=== PATIENT | female | born 1955 | race Caucasian/White ===

== ENCOUNTER 2025-03-07 01:32 | Day surgery (SDC) | payer MEDICARE, SELFPAY ==
--- NOTE | 2025-02-24 11:02 | PC.NURSE ---
[facility] has started construction of its new state of the art ER which will open Spring 2026. With this, we anticipate parking may be a challenge for some our surgical patients and families. Parking spaces are limited but are available for all Surgical, obstetrics, and ER patients sharing this lot. If you arrive and find you are having a hard time finding a parking space, please note that we understand the challenges, please drive around the hospital and park near Hospital Entrance 1. When you enter this entrance, you can ask a volunteer to direct or take you back to the surgical waiting area to check in. We appreciate everyone?s understanding of these expected challenges while we build for your future. Report to the Outpatient Waiting Room, entrance under the green pavilion located off [address], at time __6 AM on date __03/07/25 . Planned Procedure Time: _7:30 AM .? Time changes happen often and if your time is changed the preop area will call you the afternoon before. - You and your visitor will be asked to self-screen and do not enter if you have any COVID symptoms. Please call surgeon if you need to reschedule. - A mask is optional within the hospital at this time. Patients may have clear liquids (water, carbonated beverages, clear teas, apple juice) until 3 hours prior to surgery(4:30 AM) with a maximum of 20 ounces. - No food from midnight until time of surgery and no smoking, or chewing tobacco (or any form of nicotine). No chewing gum, candy or mints. - Take only the following medications with a SIP of water on the morning of surgery: NONE DO NOT STOP ANY OF YOUR OTHER PRESCRIPTION MEDICATIONS PRIOR TO SURGERY EXCEPT THE FOLLOWING Hold all vitamins and supplements for 3 days per anesthesiologist.LAST DOSE 03/03/25 Medications to discontinue per physician ____HOLD ASPIRIN 7 DAYS PRE OP PER DR VIDALES Date to take last dose___02/27/25 Please no make-up, nail tajik, hairspray, perfume, deodorant, or body powder the day of surgery.? No jewelry (including any body piercings) or valuables the day of surgery, leave them at home.? Please take a shower or bath the night before, or the morning of, surgery with an antibacterial soap.? Wear comfortable, loose fitting clothing.? Children are encouraged to wear pajamas. - Jewelry must be removed prior to entering the operating room.? Rings and piercings that are not removed may be cut off. - The hospital will not accept responsibility for valuables.? - Please leave all valuables, including medications, at home the day of surgery. If you are going home after surgery, a licensed solid waste truck driver must drive you home.? - NO public transportation without another adult if you receive anesthesia. - We recommend that an adult stay with you for 24 hours following discharge. - We also recommend that you do not drive, make important decision, drink alcoholic beverages, or take any drugs that were not prescribed by your health care provider for at least 24 hours after your discharge time. For Pediatric surgeries, we recommend two adults accompany the child home. Follow any additional instructions given to you from your surgeon. Telephone instructions given to __PATIENT and asked if any additional questions and then verbalized understanding. Patient advised to call surgeon office or pre surgery nurse liaison [phone] if any additional questions.
[2025-02-24 11:14] VITALS: BMI 21.9
--- NOTE | 2025-03-03 07:29 | PM.IMHP ---
H&P: HPI History of Present Illness Date/Time: 03/03/25 07:29 Chief Complaint: surgery Narrative: Jacki Thakkar is a 68-year-old female who presents for a follow-up visit regarding her pelvic floor condition. She reports that she has been attending physical therapy for her pelvic floor, which has been helpful. However, she still experiences intermittent prolapse that comes and goes. She has been advised to drink more water, especially before and after consuming soda, and to try delaying the urgency by counting backwards. She has been performing the exercises given to her by the physical therapist daily, which has improved her condition, although she still experiences Symptoms of prolapse. Jacki mentions that she is managing her prolapse with exercises but is unsure if further intervention is needed. She is active, enjoys yard work, lifting, and golfing, and notices the prolapse more during these activities. She takes fiber tablets to manage constipation, which can exacerbate her symptoms. She expresses interest in addressing the prolapse surgically, as it significantly impacts her daily activities. ??she does note urinary urgency. ??she has rare stress urinary incontinence Review of Systems Review of Systems: All systems reviewed & are unremarkable except as noted in HPI and below PMFSH Social History Social History Smoking status: Never smoker Alcohol intake: current Drinks per week: 6 Alcohol use details: BEER Living arrangements: with family Spiritual care concerns: No Meds Home Medications and Allergies Home Medications ?Medication ?Instructions ?Recorded ?Confirmed ?Type aspirin 81 mg capsule 81 mg PO DAILY 02/24/25 02/24/25 History calcium 500 mg (as 1 tablet PO DAILY 02/24/25 02/24/25 History carbonate)-vitamin D3 3.125 mcg (125 unit) tablet calcium polycarbophil 625 mg 1,250 mg PO DAILY 02/24/25 02/24/25 History tablet (Fiber-Tabs) multivitamin (Multiple Vitamins 1 tablet PO DAILY 02/24/25 02/24/25 History tablet) omega 4-xhd-kgl-fish oil 1,000 mg 2 cap PO DAILY 02/24/25 02/24/25 History (120 mg-180 mg) capsule (Fish Oil) Allergies Allergy/AdvReac Type Severity Reaction Status Date / Time No Known Allergies Allergy Verified 02/24/25 10:59 Exam Narrative: - Thin, atrophic vaginal tissues - Minimal urethral mobility - Cystocele to the introitus - Good apical support - No significant rectocele Assessment and Plan Assessment and plan (1) Cystocele, midline: Code(s): N81.11 - Cystocele, midline Status: Acute (2) MARGARITO (stress urinary incontinence, female): Code(s): N39.3 - Stress incontinence (female) (male) Status: Acute Plan - Pelvic organ prolapse, stage 2 cystocele -Rare stress incontinence PLAN: - The treatment options for pelvic organ prolapse have been reviewed, which include observation, pelvic floor muscle exercises, physical therapy, pessary use, and surgical intervention, each with their specific risks and benefits. - The patient has opted for surgical repair via a vaginal approach. Specifically, we discussed a [place] tissue plication repair, along with any necessary vaginal repairs deemed essential during the procedure. - She was informed of the risks involved, including bleeding, infection, recurrence of prolapse, damage to the bowel or urinary tract, formation of fistulas, nerve or vascular injury, onset of urinary urgency, urinary retention, postoperative stress urinary incontinence, and dyspareunia. She also received written materials that explain the causes and treatments of pelvic organ prolapse. - After a comprehensive discussion of her options, she has given her consent to proceed with the surgery. - will get a urodynamics. ?For her stress urinary incontinence we will plan on a concomitant sling procedure. ??discussed sling procedure as well. ??also discuss risks of ?mesh exposure and obstructive voiding
[2025-03-07] VITALS (9 sets, daily range): BP systolic 107–148; BP diastolic 59–97; PULSE 54–79; RESP 11–18; TEMP 36.3–36.8; O2SAT 98–100
--- OUTSIDE RECORDS SUMMARY | 2025-03-07 01:43 | XMS_ITS | Encounter Summary ---
Author Organization [facility] Address [address] [place] [id number] Care Team Providers Care Surface Miner Name Role Phone WilfredoMauricio marion BREANA Primary Care Provider [phone] Jennifer Sosa NP Primary Care Provider + Massiel Bass MD Unavailable [phone] Encounter Details Date Type Department Care Team (Late st Contact Info) Description 01/21/2020 Prep for Procedure [facility] [address] [facility] [place] [address] Ramsey Frausto MD Social History Tobacco Use Types Packs/Day Years Used Date Smoking Tobacco: Never Smokeless Tobacco: Never Alcohol Use Standard Drinks/Week Comments Yes 11.7 (1 standard drink = 0.6 oz pure alcohol) Comments No Sex and Gender Information Value Date Recorded Sex Assigned at Female 01/29/2025 12:20 PM CDT Legal Sex Female 4:22 PM CDT Gender Identity Female 01/29/2025 12:20 PM CDT Sexual Orientation Not on file COVID-19 Exposure Response Date Recorded In the last month, have you been in contact with someone who was confirmed or suspected to have Coronavirus / COVID-19? No / Unsure 01/24/2020 11:13 AM CDT documented as of this encounter Plan of Treatment Upcoming Encounters Date Type Department Care Team (Latest Contact Info) Description 03/26/2025 1:00 PM WELL TREATMENT OFFSIDER Appointment [facility] [address] [facility] [place] [address] Jennifer Sosa NP [address] [facility] [address] [place] [address] 07/11/2025 7:30 AM CDT Hospital Encounter [facility] [place], [place] [id number] Bryce Blakely, DO [address] [address] 07/11/2025 7:30 AM CDT - 07/11/2025 8:00 AM CDT Surgery [facility] [address] Bryce Blakely, DO [facility] [address] [address] COLONOSCOPY w/Dr. Marcano Scheduled Procedures Name Priority Associated Diagnoses Date/Ti me COLONOSCOPY Tortuous colon 07/11/2025 7:30 AM CDT documented as of this encounter Results * PRE-SURGICAL/PRE-PROCEDURE CORONAVIRUS (COVID 19) (01/24/2020 11:13 AM CDT) CORONAVIRUS SARS COV 2 PCR (RESP) NOT DETECTED NOT DETECTED 01/25/2020 4:45 PM CDT [facility] Comment: A Not Detected (negative) test result for this test means that SARS- CoV-2 RNA was not present in the specimen above the limit of detection. A negative result does not rule out the possibility of COVID-19 and should not be used as the sole basis for treatment or patient management decisions. If COVID-19 is still suspected, based on exposure history together with other clinical findings, re-testing should be considered in consultation with public health authorities. Laboratory test results should always be considered in the context of clinical observations and epidemiological data in making a final diagnosis and patient management decisions. Please review the Fact Sheets and FDA authorized labeling available for health care providers and patients using the following websites: https://www.[employer].SnapLogic/home/Covid-19/HCP/NAAT/fact-sheet2 https://www.[employer].SnapLogic/home/Covid-19/Patients/NAAT/ fact-sheet2 This test has been authorized by the FDA under an Emergency Use Authorization (EUA) for use by authorized laboratories. Due to the current public health emergency, [facility] is receiving a high volume of samples from a wide variety of swabs and media for COVID-19 testing. In order to serve patients during this public health crisis, samples from appropriate clinical sources are being tested. Negative test results derived from specimens received in non-commercially manufactured viral collection and transport media, or in media and sample collection kits not yet authorized by FDA for COVID-19 testing should be cautiously evaluated and the patient potentially subjected to extra precautions such as additional clinical monitoring, including collection of an additional specimen. Methodology: Nucleic Acid Amplification Test (NAAT) includes PCR or TMA Additional information about COVID-19 can be found at the [employer] website: www.[employer]SnapLogic/Covid19. Test performed at [facility] [id number] [place] [address] Director: DIMPLE ABREU DO,MPH FIRST TEST YES 01/24/2020 11:13 AM T [facility] EMPLOYED IN HEALTHCARE NO 01/24/2020 11:13 AM T [facility] SYMPTOMATIC DEFINED BY CDC NO 01/24/2020 11:13 AM T [facility] DATE OF SYMPTOM ONSET UNKNOWN 01/24/2020 11:28 AM T [facility] HOSPITALIZATION STATUS NO 01/24/2020 11:13 AM T [facility] PATIENT IN ICU NO 01/24/2020 11:13 AM T [facility] RESIDENT OF [facility] NO 01/24/2020 11:13 AM T [facility] NOT 01/24/2020 11:28 AM T [facility] PATIENT'S RACE WHITE OR 01/24/2020 11:13 AM CDT [facility] ETHNICITY NONHISPANIC 01/24/2020 11:13 AM CDT [facility] SOURCE (QST) NASOPHARYNGEAL SWAB 01/24/2020 11:13 AM CDT [facility] NASOPHARYNGEAL SWAB / Unknown 01/24/2020 11:13 AM CDT us Ramsey Frausto MD MICROBIOLOGY - GENERAL ERON HICKEY Final Result [facility] [address] [place] [address], [facility] [address] [place] [address], documented in this encounter Visit Diagnoses Diagnosis Pre-op testing- Primary Preoperative examination, unspecified documented in this encounter Additional Health Concerns Infection Onset Date Last Indicated Resolved Time COVID-19 Rule Out 01/24/2020 01/24/2020 01/25/2020 4:45 PM CDT documented as of this encounter Care Teams Surface Miner Relationship Specialty Start Date End Date Mauricio Villalobos FNP [address] [facility] [address] [place] [address] PCP - General Nurse Practitioner Family 01/04/1911/24 Jennifer Sosa NP [address] [facility] [address] [place] [address] PCP - General Nurse Practitioner Family 11/25/20 Massiel Bass MD [facility] [place] [address] DERMATOLOGY 12/25/20 documented as of this encounter
--- OUTSIDE RECORDS SUMMARY | 2025-03-07 01:44 | XMS_ITS | Encounter Summary ---
Author Organization [facility] Address [address] [place] [address] Care Team Providers Care Set Up Worker Name Role Phone Unavailable Primary Care Provider Unavailabl e Encounter Details Date Type Department Care Team (Late st Contact Info) Description 04/13/2018 Lab Requisition [facility] [address] [facility] [place] [id number] Lilo Juarez DO [address] [facility] [address] [place] [address] Social History Tobacco Use Types Packs/Day Years Used Date Smoking Tobacco: Never Assessed Comments Unknown Sex and Gender Information Value Date Recorded Sex Assigned at Not on file Legal Sex Female 5:56 PM REGULATOR INSPECTOR Gender Identity Not on file Sexual Orientation Not on file documented as of this encounter Plan of Treatment Not on file documented as of this encounter Procedures Procedure Name Priority Date/Time Associated Diagnosis Comments DERMPATH SLIDE CONSULT Routine 04/13/2018 12:00 AM REGULATOR INSPECTOR documented in this encounter Results * DERMPATH SLIDE CONSULT (04/13/2018 12:00 AM REGULATOR INSPECTOR) Case Report Dermatopathology Report Case: [id number] Authorizing Provider: Lilo Juarez DO Collected: 04/13/2018 12:00 AM Pathologist: Michelle Yin MD Received: 04/13/2018 02:48 PM Specimen: Slide(s), Left index 8 1:44 PM REGULATOR INSPECTOR DERMATOPATHOLOGY LABORATORY Final Diagnosis Specimen A. Slide(s), Left index: DERMAL SPINDLE CELL NEOPLASM, SUPERFICIAL PORTIONS OF (D23.9) (see microscopic description and comment) 8 1:44 PM REGULATOR INSPECTOR DERMATOPATHOLOGY LABORATORY at 1344 REGULATOR INSPECTOR Clinical History Materials received from: [facility] [address] [place] [address] Received from [facility] are 12 slide(s) labeled [id number], Deeper x2, García Keratin, P63, S100, CD34, Factor XIII, Actin, Desmin, CD10, and CD68. Dermal spindle cell proliferation. All slides returned. Any additional sections, special stains or immunohistochemical stains performed by our laboratory will be kept here on file. 1:44 PM [facility] Microscopic Description Specimen A. Slide(s), Left index: The lesion is very superficially sampled. Within the dermis, there are spindled cells in haphazard array among coarse collagen bundles. The spindled cells are positive for CD10, focally positive for Factor 13A, and weakly positive for smooth muscle actin but they are negative for pancytokeratin, p63, S-100, CD34, desmin and CD68. Colloidal iron is equivocal for increased mucin. Mib-1 reveals a low proliferative index within the tumor. COMMENT: The low proliferative index and lack of significant cytologic atypia, pleomorphism and mitotic figures favors a benign diagnosis such as superficial portions of a dermatofibroma, superficial angiomyxoma or multinucleate cell angiohistiocytoma; however, the superficial nature of the biopsy specimen precludes definitive diagnosis and a deeper biopsy should be considered. This case was shared with Dr. Frannie Otto who agrees. 1:44 PM [facility]ORATORY Disclaimer An external and internal positive and negative controls are appropriate for the histochemical, immunohistochemical and immunofluorescence stain(s) in this case (if any), except where stated explicitly. The performance characteristics of the stain(s) cited in this report were developed and its performance characteristic determined by the Dermatopathology Laboratory at [facility]. These tests need not be, and therefore are not, approved by the [place] Food and Drug Administration. The tests are used for clinical purposes. Billing Codes Specimen Charges Stain Charges 84291 1 17515 20074 1 1 8 1:44 PM REGULATOR INSPECTOR DERMATOPATHOLOGY LABORATORY Embedded Images 1:44 PM REGULATOR INSPECTOR DERMATOPATHOLOGY LABORATORY Pathology/Cytolog y SLIDE / Unknown 04/13/2018 04/13/2018 2:48 PM REGULATOR INSPECTOR us Lilo Juarez DO LAB - PATHOLOGY/CYTOLOGY ORDERABLES Final Result DERMATOPATHOLOGY LABORATORY [facility] - Department of Dermatology [address] [facility]th [facility] Lab [address] [phone] documented in this encounter Visit Diagnoses Not on filedocumented in this encounter
--- OUTSIDE RECORDS SUMMARY | 2025-03-07 01:44 | XMS_ITS | Clinical Summary ---
Author Organization [facility] Address [address] [place] [address] Care Team Providers Care Hr Leader Name Role Phone Unavailable Primary Care Provider Unavailabl e Source Comments [facility] [employer],non-owned Affiliates and Associated Physician Practices is amultiple site organization consisting of ambulatory clinics and hospital sitesin [place], [place] and [place]. This disclosure is being madepursuant to the Care Everywhere program and may not contain all information available regarding this patient. 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 Gender Identity Not on file Sexual Orientation Not on file Plan of Treatment Health Maintenance Due Date Last Done Comments BONE DENSITY TESTING 1955 COLOGUARD (AGES 45-75) - COL ON CA SCREENING 1956 COLON MONITORING 1956 COLONOSCOPY - COLON CA SCREENING 1956 CT COLONOGRAPHY - COLON CA SCREENING 1956 Colorectal Cancer Screening 1956 FIT - COLON CA SCREENING 1956 FLEX SIG - COLON CA SCREENING 1956 LIPID TESTING 1956 MAMMOGRAM 1956 HEPATITIS C SCREENING 10/04/1974 DTAP/TDAP/TD VACCINES (1 - Tdap) 10/09/1975 PNEUMOCOCCAL VACCINE 50+ (1 of 1 - PCV) 2006 ZOSTER VACCINE (1 of 2) 2006 DEPRESSION SCREENING 04/24/2024 COVID-19 VACCINE (1 - 2024-2 6 season) 2024 INFLUENZA VACCINE (#1) 2024 Respiratory Syncytial Virus (RSV) Vaccine Pt: or over 60 yrs (1 - 1-dose 75+ series) 10/09/2031 HEPATITIS B VACCINE Aged Out No longe r eligible based on patient's age to complete this topic HIB VACCINE Aged Out No longer eligi ble based on patient's age to complete this topic HPV VACCINE Aged Out No longer eligi ble based on patient's age to complete this topic MENINGOCOCCAL (Group B) VACC INE SHARED DECISION-MAKING Aged Out No longer eligibl e based on patient's age to complete this topic MENINGOCOCCAL GROUPS A/C/Y/W VACCINE Aged Out No longer eligible b ased on patient's age to complete this topic Insurance Member Subscriber Plan / Payer (Ef fective 2017-Present) Name:Jacki Thakkar Relation to Subscriber:Self Name:JACKI THAKKAR Payer ID:[id number] (NAIC) Type:[facility] Address: [facility] [id number] [place] [id number]
--- OUTSIDE RECORDS SUMMARY | 2025-03-07 01:44 | XMS_ITS | Encounter Summary ---
Author Organization [facility] Address [address] [place] [address] Care Team Providers Care Manufacturing Cost Estimator Name Role Phone Unavailable Primary Care Provider Unavailabl e Encounter Details Date Type Department Care Team (Late st Contact Info) Description 04/09/2018 Lab Requisition [facility] Care DermPath Lab [address] [facility] [place] [id number] Massiel Bass MD [address] [facility] 3 [place] [address] Social History Tobacco Use Types Packs/Day Years Used Date Smoking Tobacco: Never Assessed Comments Unknown Sex and Gender Information Value Date Recorded Sex Assigned at Not on file Legal Sex Female 5:56 PM COLD ROLL OPERATOR Gender Identity Not on file Sexual Orientation Not on file documented as of this encounter Plan of Treatment Not on file documented as of this encounter Procedures Procedure Name Priority Date/Time Associated Diagnosis Comments DERMATOPATH TECHNICAL REPORT Routine 04/05/2018 12:00 AM COLD ROLL OPERATOR documented in this encounter Results * DERMATOPATH TECHNICAL REPORT (04/05/2018 12:00 AM COLD ROLL OPERATOR) Case Report Dermatopathology Report Case: [id number] Authorizing Provider: Massiel Bass MD Collected: 04/05/2018 12:00 AM Pathologist: Manolo Schneider MD Received: 04/09/2018 07:10 AM Specimen: Skin, left index 8 3:02 PM COLD ROLL OPERATOR DERMATOPATHOLOGY LABORATORY Addendum 2 At the request of the diagnosing physician, the technical component for CD68 was performed by [facility] Dermatopathology Laboratory. 8 3:02 PM COLD ROLL OPERATOR DERMATOPATHOLOGY LABORATORY Addendum electronically signed by Manolo Schneider MD on 04/12/2018 at 1502 COLD ROLL OPERATOR Addendum 1 At the request of the diagnosing physician, the technical component for García Cytokeratin, P63, S100, CD34, Factor XIIIa, SMA, Desmin and CD10 was performed by [facility] Dermatopathology Laboratory. 3:02 PM [facility] DERMATOPATHOLOGY LABORATORY Addendum electronically signed by Michelle Yin MD on 04/11/2018 at 1222 COLD ROLL OPERATOR Clinical History Decordova papule VV/cyst/SCC. 3:02 PM [facility] DERMATOPATHOLOGY LABORATORY Gross Description Specimen A: Received is one formalin filled container labeled with the patient's name and designated left index. The specimen consists of a shave measuring [id number]. Jar 0. [facility] Dermatopathology Laboratory performed the technical component only. 3:02 PM [facility] DERMATOPATHOLOGY LABORATORY Embedded Images 3:02 PM [facility] DERMATOPATHOLOGY LABORATORY DISCLAIMER An external and internal positive and negative controls are appropriate for the histochemical, immunohistochemical and immunofluorescence stain(s) in this case (if any), except where stated explicitly. The performance characteristics of the stain(s) cited in this report were developed and its performance characteristic determined by the Dermatopathology Laboratory at [facility]. These tests need not be, and therefore are not, approved by the [place] Food and Drug Administration. The tests are used for clinical purposes. 3:02 PM [facility] DERMATOPATHOLOGY LABORATORY at 1047 COLD ROLL OPERATOR Pathology/Cytolog y TISSUE SPECIMEN FROM SKIN / Unknown 04/05/2018 04/09/2018 7:10 AM COLD ROLL OPERATOR Massiel Bass MD LAB - PATHOLOGY/CYTOLOGY ORD ERABLES Edited Result - Final DERMATOPATHOLOGY LABORATORY [facility] - Department of Dermatology [address] [place] [address], 5th [place] [address], [facility] [phone] documented in this encounter Visit Diagnoses Not on filedocumented in this encounter
--- OUTSIDE RECORDS SUMMARY | 2025-03-07 01:44 | XMS_ITS | Clinical Summary ---
Author Organization [facility] Address [facility] [place] [address] Care Team Providers Care Quad Stayer Name Role Phone Glory Vasquez NP Primary Care Provider + Massiel Bass MD Unavailable [phone] Allergies No known active allergies Medications [place]-3 Fatty Acids ([facility] FISH OIL) 1200 MG Cap Take by mouth daily. 01/01/2018 Active Multiple Vitamins-Mineral s (WOMENS 50+ MULTI VITAMIN/MIN) Tab Take by mouth daily. 01/01/2018 Active calcium citrate-vitamin D 315 MG-200 UNIT tablet Active polycarbophil (FIBERCON) 625 MG tablet Take 1 tablet (625 mg total) by mouth daily. Active aspirin EC (ECOTRIN) 81 MG tablet Take 1 tablet (81 mg total) by mouth daily. Active Active Problems Problem Noted Date Diagnosed Date Female bladder prolapse 12/28/[address] 12/28/2021 Hyperlipidemia 12/27/2019 Resolved Problems Problem Noted Date Diagnosed Date Resolved Date Encounter for screening for malignant neoplasm of colon 01/30/2025 02/03/2025 Encounter for screening for malignant neoplasm of colon 01/30/2025 02/10/2025 Encounters Date Type Department Care Team Description 02/13/2025 Telephone [facility] [address] [place] [address] Glory Vasquez NP Billing Issue 02/10/2025 Orders Only [facility] General Surgery - [place] [address] [facility], [address] [place] [address] Bryce Blakely DO 02/07/2025 8:23 AM CDT Anesthesia Event [facility] [address] [place] [address] Gilberto Em CRNA Bernstein, Brad, MD 02/07/2025 8:15 AM CDT - 02/07/2025 9:00 AM CDT Surgery [facility] [address] [place] [address] Bryce Blakely, COLONOSCOPY INCOMPLETE 02/07/2025 7:08 AM CDT - 02/07/2025 10:49 AM CDT Hospital Encounter [facility] [address] [place] [address] Bryce Blakely, Discharge Disposition: Home or Self Care (Routine Discharge) 02/07/2025 Travel 01/30/2025 Prep for Procedure [facility] General Surgery - [address], [address] [place] [address] Bryce Blakely DO 01/29/2025 12:30 PM CDT Office Visit [facility] - [address], [address] [place] [address] Bryce Blakely, Consult For Colonoscopy (Just due for 1- been 5 years) 01/29/2025 Travel 01/15/2025 8:10 AM CDT - 01/15/2025 11:59 PM CDT Hospital Encounter [facility] [address] [place] [address] Glory Vasquez NP Discharge Disposition: Home or Self Care (Routine Discharge) 01/15/2025 Results Follow-Up [address] [address] Zakiya Sterling RN LIPID PANEL, COMPREHENSIVE METABOLIC PANEL, CBC W/DIFF AUTOMATED 01/14/2025 9:00 AM CDT Office Visit [address] [phone] Glory Vasquez, MANAGER PROCESS Physical (Pt here today for yearly wellness.) 01/14/2025 Travel from Last 3 Months Immunizations Immunization Administration Dates Next Due AFLURIA QUAD >36 MONTHS (MULTI-DOSE VIAL) 2018 Flucelvax 6 Months+ (Prefilled Syringe) 01/28/20 Fluzone 6 Months+ Quad (0.5 mL Prefilled Syringe) 01/27/2021 Fluzone High Dose (IIV, trivalent, 0.5mL) 2023 Fluzone High Dose - >Age 65 (Prefilled Syringe) 01/24/2025,02/03/2023 Influenza Adult (Generic) 02/22/2022,02/28/2019 MODERNA COVID-19 BIVALENT (1 2+), MRNA, LNP-S, PF 02/22/2022 MODERNA COVID-19 (12+) MRNA, LNP-S, PF, 100 MCG/ 0.5 ML DOSE 02/17/2021,08/13/2020,07/16/2020 MODERNA COVID-19 MRNA, LNP-S , PF, 10 MCG/0.2 ML (mNEXSPIKE) 01/24/2025 Pneumococcal (Prevnar 20) 12/28/2021 Shingrix 08/24/2022,04/26/2022 Tdap (Adacel) 08/15/2019 Family History Medical History Relation Comments Retardation/Learning Difficulties Brother Alcohol Abuse Father Cancer Father stomach, lung Dementia Mother Relation Status Comments Brother Father Mother Social History Tobacco Use Types Packs/Day Years Used Date Smoking Tobacco: Never Smokeless Tobacco: Never Tobacco Cessation:Counseling Given: No Alcohol Use Standard Drinks/Week Comments Yes 10 (1 standard drink = 0.6 oz pu re alcohol) occasional PHQ-2 Answer Date Recorded Patient Health Questionnaire-2 Score 0 01/29/2025 Comments No Sex and Gender Information Value Date Recorded Sex Assigned at Female 01/29/2025 12:20 PM CDT Legal Sex Female 4:22 PM CDT Gender Identity Female 01/29/2025 12:20 PM CDT Sexual Orientation Not on file Last Filed Vital Signs Vital Sign Reading Time Taken Comments Blood Pressure 121/85 02/07/2025 10:20 AM CDT Pulse 78 02/07/2025 7:47 AM CDT Temperature 36.4 C (97.6 F) 02/07/2025 9:34 AM CDT Respiratory Rate 16 02/07/2025 10:20 AM CDT Oxygen Saturation 99% 02/07/2025 10:20 AM CDT Inhaled Oxygen Concentration - - Weight 59 kg (130 lb) 02/07/2025 7:47 AM CDT Height 163.8 cm (5' 4.5) 01/30/2025 12:00 PM CD T Body Mass Index 21.97 01/30/2025 12:00 PM CDT Plan of Treatment Upcoming Encounters Date Type Department Care Team (Latest Contact Info) Description 03/26/2025 1:00 PM CUT ORDER HAND Appointment [facility] [address] [place] [address] Glory Vasquez, MANAGER PROCESS [address] [facility] [address] [place], [place] [phone] 07/11/2025 7:30 AM CDT Hospital Encounter [facility] [place] [id number] Bryce Blakely, [address] [phone] 07/11/2025 7:30 AM CDT - 07/11/2025 8:00 AM CDT Surgery [facility] [place], [place] [phone] Bryce Blakely, [address] [address] COLONOSCOPY w/Dr. Marcano Scheduled Procedures Name Priority Associated Diagnoses Date/Ti me COLONOSCOPY Tortuous colon 07/11/2025 7:30 AM CDT Health Maintenance Due Date Last Done Comments Hepatitis C 1973 Annual Medicare Wellness Visit 2021 Dexa Scan (General) 2021 COVID-19 Vaccine ( season) 2025 01/24/2025, 01/17/2024, 02/03/2023, Additional history exists Mammogram Screening 03/22/2026 03/22/2024, 03/20/2023, 01/24/2022, Additional history exists DTaP, Tdap and Td Vaccines (2 - Td or Tdap) 08/14/2029 08/15/2019 RSV Immunization or 60+ Years (1 - 1-dose 75+ series) 10/09/2031 Colorectal Cancer Screening Colonoscopy (10 Years) 02/07/2035 02/07/2025, 01/27/2020 Pneumococcal Vaccine: 50+ Years Completed 12/28/2021 Zoster Vaccines Completed 08/24/2022, 04/26/2022 Influenza Adult Completed 01/24/2025, 12/23, 02/03/2023, Additional history exists PHQ-2 (Physician Holden) Completed 01/29/2025 Hepatitis A Vaccines Aged Out No long er eligible based on patient's age to complete this topic Meningococcal B Vaccine Aged Out No l onger eligible based on patient's age to complete this topic Meningococcal Vaccine Aged Out No thuy mali eligible based on patient's age to complete this topic RSV Immunizations Under 20 Months Aged Out No longer eligible based on patient's age to complete this topic Goals Goal Patient Goal Type Associated Problems Recent Progress Patient-Stated? Author Autogenera mu Goal Care Plan Autogenerated Problem No Lynn Alarcon, [facility] Procedures Procedure Name Priority Date/Time Associated Diagnosis Comments COLONOSCOPY FLX DX W/COLLJ SPEC WHEN PFRMD 02/07/2025 8:21 AM CDT Encounter for screening for malignant neoplasm of colon COLONOSCOPY Routine 02/07/2025 7:09 AM CDT HC CBC AUTO W/AUTO DIFF STAT 01/15/2025 8:19 AM CDT Mixed hyperlipidemia HC COMPREHENSIVE METABOLIC PANEL Routine 01/15/2025 8:19 AM CDT Mixed hyperlipidemia HC LIPID PANEL Routine 01/15/2025 8:19 AM CDT Mixed hyperlipidemia MG SCREENING W SULY APPLE DIGI Routine 03/22/2024 10:46 AM CUT ORDER HAND Screening mammogram, encounter for from Last 3 Months or Most Recently Relevant to Health Maintenance Results * (ABNORMAL) COMPREHENSIVE METABOLIC PANEL (01/15/2025 8:19 AM CDT) GLUCOSE 89 70 - 99 MG/DL 01/15/2025 9:09 AM T [facility] BUN 16 7 - 18 MG/DL 01/15/2025 9:09 AM T [facility] CREATININE S/P/B 0.90 0.55 - 1.02 MG/DL 01/15/2025 9:[address] [facility] SODIUM S/P/B 142 136 - 145 MMOL/L 01/15/2025 9:[address] [facility] POTASSIUM S/P/B 4.1 3.5 - 5.1 MMOL/L 01/15/2025 9:[address] [facility] CHLORIDE S/P/B 107 100 - 108 MMOL/L 01/15/2025 9:[address] [facility] CO2 26.4 21 - 32 MMOL/L 01/15/2025 9:[address] [facility] CALCIUM S/P/B 9.3 8.5 - 10.1 MG/DL 01/15/2025 9:[address] [facility] BILIRUBIN TOTAL S/P/B 0.5 0.2 - 1.2 MG/DL 01/15/2025 9:[address] [facility] Comment: THIS ASSAY IS NOT RECOMMENDED FOR PATIENTS UNDERGOING TREATMENT WITH ELTROMBOPAG DUE TO THE POTENTIAL FOR FALSELY ELEVATED RESULTS. TOTAL PROTEIN S/P/B 6.9 6.4 - 8.2 G/DL 01/15/2025 9:09 AM T [facility] ALBUMIN S/P/B 3.5 3.4 - 5.0 G/DL 01/15/2025 9:09 AM CDT [facility] AST 21 15 - 37 U/L 01/15/2025 9:09 AM T [facility] ALT 25 14 - 55 U/L 01/15/2025 9:09 AM T [facility] ALKALINE PHOSPHATASE S/P/B 94 50 - 136 U/L 01/15/2025 9:09 AM T [facility] ANION GAP 8.6 5 - 15 MMOL/L 01/15/2025 9:09 AM T [facility] BUN CREATININE RATIO 17.8 6 - 26 01/15/2025 9:[address] [facility] A/G RATIO 1.0 1.0 - 2.0 RATIO 01/15/2025 9:[address] [facility] GFR ESTIMATE 70(L) >90 ML/MIN/1.7 3 M2 01/15/2025 9:09 AM T [facility] Comment: NOTE: eGFR is not calculated for patients <18 years of age. This is an estimated GFR calculation using the new CKD EPI creatinine equation without race and so does not require a correction factor for race. This estimated GFR should not be used for calculating drug doses. 01/15/2025 8:19 AM CDT us Glory Vasquez NP LABORATORY Final Re sult [facility] [address] [place] [address], [place] [phone] * (ABNORMAL) LIPID PANEL (01/15/2025 8:19 AM CDT) CHOLESTEROL 233(H) <200 MG/DL 01/15/2025 9:09 AM CDT [facility] TRIGLYCERIDES 32 <150 MG/DL 01/15/2025 9:[address] [facility] HDL 80 >40.0 MG/DL 01/15/2025 9:[address] [facility] LDL (CALCULATED) 147(H) <100 MG/DL 01/15/2025 9:[address] [facility] Comment:CALCULATED USING THE FRIEDEWALD EQUATION NON HDL CHOLESTEROL 153(H) <130 MG/DL 01/15/2025 9:[address] [facility] Comment: NOTE: WHEN THE TRIGLYCERIDES ARE >200 mg/dL, NON HDL C IS A SECONDARY TARGET OF THERAPY, WITH A GOAL 30 mg/dL HIGHER THAN THE IDENTIFIED LDL C GOAL. CHOL/HDL RATIO 2.9 0.0 - 4.5 01/15/2025 9:[address] [facility] VLDL CALCULATION 6 5 - 55 MG/DL 01/15/2025 9:[address] [facility] LIPID INTERPRETATION 01/15/2025 9:[address] [facility] Comment: NIH CONCENSUS REPORT RECOMMENDATIONS: ADULT CHILD LOW RISK: CHOLESTEROL <200 <170 TRIGLYCERIDE <150 --- HDL >=60 --- LDL <100 <110 BORDERLINE: CHOLESTEROL 200-239 170-199 TRIGLYCERIDE 150-199 --- HDL 40-59 --- LDL 100-159 110-129 HIGH RISK: CHOLESTEROL >=240 >=200 TRIGLYCERIDE >=200 --- HDL <40 --- LDL >=160 >=130 01/15/2025 8:19 AM CDT us Glory Vasquez MANAGER PROCESS LABORATORY Final Re sult [facility] [address] [place] [address], [place] [phone] * (ABNORMAL) CBC W/DIFF AUTOMATED (01/15/2025 8:19 AM CDT) WBC 4.61 4.50 - 11.00 x10'3/uL 01/15/2025 8:29 AM CDT [facility] RBC 4.47 4.20 - 5.40 x10'6/uL 01/15/2025 8:29 AM CDT [facility] HGB 14.3 12.0 - 16.0 G/DL 01/15/2025 8:29 AM CDT [facility] HCT 42.3 38.0 - 48.0 % 01/15/2025 8:29 AM CDT [facility] MCV 94.6 81.0 - 99.0 FL 01/15/2025 8:29 AM CDT [facility] MCH 32.0(H) 27.0 - 31.0 PG 01/15/2025 8:29 AM CDT [facility] MCHC 33.8 32.0 - 36.0 G/DL 01/15/2025 8:29 AM CDT [facility] RDW 12.9 11.5 - 14.5 % 01/15/2025 8:29 AM CDT [facility] PLT 225 130 - 400 x10'3/uL 01/15/2025 8:29 AM CDT [facility] MPV 10.1 9.3 - 12.2 FL 01/15/2025 8:29 AM CDT [facility] CBC COMMENT AUTOMATED RBC MORPHOLOGY AND PLATELET EVALUATION NORMAL 01/15/2025 8:29 AM CDT [facility] NEUTROPHILS % 43.5 % 01/15/2025 8:29 AM CDT [facility] LYMPHOCYTES % 43.2 % 01/15/2025 8:29 AM CDT [facility] MONOCYTES % 8.5 % 01/15/2025 8:29 AM CDT [facility] EOSINOPHILS 3.5 % 01/15/2025 8:29 AM CDT [facility] BASOPHILS 1.1 % 01/15/2025 8:29 AM CDT [facility] IMMATURE GRANS % 0.2 % 01/16/20 8:29 AM CDT [facility] NRBC % 0.0 % 01/15/2025 8:29 AM CDT [facility] ABS. NEUTROPHILS TOTAL 2.01 1.80 - 7.70 x10'3/uL 01/15/2025 8:29 AM CDT [facility] ABS. LYMPHOCYTES 1.99 1.00 - 4.80 x10'3/uL 01/15/2025 8:29 AM CDT [facility] ABS. MONOCYTES 0.39 0.24 - 0.86 x10'3/uL 01/15/2025 8:29 AM CDT [facility] ABS. EOSINOPHILS 0.16 0.04 - 0.36 x10'3/uL 01/15/2025 8:29 AM CDT [facility] ABS. BASOPHILS 0.05 0.01 - 0.08 x10'3/uL 01/15/2025 8:29 AM CDT [facility] ABS. IMMATURE GRANULOCYTES 0.01 0.00 - 0.49 x10'3/uL 01/15/2025 8:29 AM CDT [facility] ABS. NUCLEATED RBC'S 0.00 0.00 - 0.01 x10'3/uL 01/15/2025 8:29 AM T [facility] 01/15/2025 8:19 AM CDT Glory Vasquez MANAGER PROCESS LABORATORY Final Re sult [facility] [address] [place] [address], * MG SCREENING W SULY APPLE DIGI (03/22/2024 10:46 AM CUT ORDER HAND) Anatomical Region Laterality Modality Breast Bilateral Mammography 03/22/2024 12:2 3 PM CUT ORDER HAND Impressions 03/22/2024 12:25 PM CUT ORDER HAND ===== IMPRESSION: ===== 1. Stable mammographic appearance with no new findings to suggest malignancy in either breast. Assessment: ACR BI-RADS 2 - BENIGN FINDING(S) Recommendation: 1:Routine Screening Bilateral Comments: Ordered By: GLORY VASQUEZ Interpreted By: Johnson Frank MD, 03/22/2024 12:23 PM Narrative 03/22/2024 12:25 PM CUT ORDER HAND [address] [address] Examination: Digital bilateral screening mammogram with 3D Tomosynthesis Exam Date/Time: 03/22/2024 10:20 AM Reason For Exam: screening No prior breast procedures. No personal or family history of breast cancer. No current complaints. Personal history of skin cancer at age 54. Comparison: Mammograms from 03/20/2023 01/24/2022 01/18/2021 Technique: Digital screening mammography of both breasts was performed in addition to 3-D Tomosynthesis technique. This study was read with the assistance of a computer-aided detection system. Tissue density: The breasts are heterogeneously dense, which may obscure small masses. Findings: Benign bilateral axillary lymph nodes. No suspicious interval change in parenchymal pattern from prior studies. There is no new focal asymmetry, dominant mass lesion, area of skin thickening, or cluster of suspicious appearing calcifications in either breast to suggest malignancy. Glory Vasquez MANAGER PROCESS MAMMO Final Re sult from Last 3 Months or Most Recently Relevant to Health Maintenance Additional Health Concerns Active Problems Noted Date Diagnosed Date Autogenerated Problem 03/05/2025 Insurance MEDICARE [employer] Care Teams Quad Stayer Relationship Specialty Start Date End Date Glory Vasquez NP [address] [facility] [address] [place] [address] PCP - General Nurse Practitioner Family 11/25/20 Massiel Bass MD [facility] [place] [address] DERMATOLOGY 12/25/20
--- OUTSIDE RECORDS SUMMARY | 2025-03-07 01:44 | XMS_ITS | Encounter Summary ---
Author Organization [facility] Address [address] [place] [address] Care Team Providers Care Manager Stone Name Role Phone Unavailable Primary Care Provider Unavailabl e Encounter Details Date Type Department Care Team (Late st Contact Info) Description 11/17/2017 Lab Requisition [facility] Care DermPath Lab [address] [facility] [place] [phone] Massiel Bass MD [address] [facility] [address] [place] [address] Social History Tobacco Use Types Packs/Day Years Used Date Smoking Tobacco: Never Assessed Comments Unknown Sex and Gender Information Value Date Recorded Sex Assigned at Not on file 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 Gender Identity Not on file Sexual Orientation Not on file documented as of this encounter Plan of Treatment Not on file documented as of this encounter Procedures Procedure Name Priority Date/Time Associated Diagnosis Comments DERMATOPATH TECHNICAL REPORT Routine 11/16/2017 12:00 AM CDT documented in this encounter Results * DERMATOPATH TECHNICAL REPORT (11/16/2017 12:00 AM CDT) Case Report Dermatopathology Report Case: [id number] Authorizing Provider: Massiel Bass MD Collected: 11/16/2017 12:00 AM Pathologist: Frannie Otto MD Received: 11/17/2017 06:00 AM Specimen: Skin, left mid chest 8 11:41 AM CDT DERMATOPATHOLOGY LABORATORY Clinical History R/O BCC, SK, white shiny papule. 8 11:41 AM CDT DERMATOPATHOLOGY LABORATORY Gross Description Specimen A: Received is one formalin filled container labeled with the patient's name and designated left mid chest. The specimen consists of a shave biopsy measuring [id number]. Jar 0. [facility] Dermatopathology [facility] performed the technical component only. 11:41 AM CDT DERMATOPATHOLOGY LABORATORY Embedded Images 11:41 AM CDT DERMATOPATHOLOGY LABORATORY DISCLAIMER An external and internal positive and negative controls are appropriate for the histochemical, immunohistochemical and immunofluorescence stain(s) in this case (if any), except where stated explicitly. The performance characteristics of the stain(s) cited in this report were developed and its performance characteristic determined by the Dermatopathology Laboratory at [facility]. These tests need not be, and therefore are not, approved by the [place] Food and Drug Administration. The tests are used for clinical purposes. 11:41 AM T DERMATOPATHOLOGY LABORATORY at 1141 CDT Pathology/Cytolog y TISSUE SPECIMEN FROM SKIN / Unknown 11/16/2017 11/17/2017 6:00 AM CDT us Massiel Bass MD LAB - PATHOLOGY/CYTOLOGY ORD ERABLES Final Result DERMATOPATHOLOGY LABORATORY [facility] - Department of Dermatology [address] [facility] [address]th [place] [address], [facility] [phone] documented in this encounter Visit Diagnoses Not on filedocumented in this encounter
[2025-03-07] MEDS: LACTATED RINGERS 1,000 ML 30 ML IV CONT ×2 (06:25→09:38)
--- NOTE | 2025-03-07 06:47 | WPDANESEPPF ---
Anes - Initial Pre Proc Eval Procedure: Operation Date: 03/07/25 07:30 Proposed Procedures p Cystocele Repair, - Rei Dumont MD s Urethral Sling - Rei Dumont MD Date/Time: 03/07/25 06:47 Surgeon: Rei Dumont MD Pre Op Diagnosis: cystocele, stress incont Patient Data Age: 69 Gender: F Height: 1.64 m Weight: 59.65 kg Last Vital Signs Temp 36.8 C 03/07/25 06:05 Pulse 61 03/07/25 06:05 Resp 16 03/07/25 06:05 BP 141/67 H 03/07/25 06:05 Pulse Ox 100 03/07/25 06:05 O2 Del Method Room Air 03/07/25 06:05 Allergies Allergy/AdvReac Type Severity Reaction Status Date / Time No Known Allergies Allergy Verified 03/07/25 06:14 Home Medications ?Medication ?Instructions ?Recorded ?Confirmed ?Type aspirin 81 mg capsule 81 mg PO DAILY 02/24/25 03/07/25 History calcium 500 mg (as 1 tablet PO DAILY 02/24/25 03/07/25 History carbonate)-vitamin D3 3.125 mcg (125 unit) tablet calcium polycarbophil 625 mg 1,250 mg PO DAILY 02/24/25 03/07/25 History tablet (Fiber-Tabs) multivitamin (Multiple Vitamins 1 tablet PO DAILY 02/24/25 03/07/25 History tablet) omega 5-nmn-ahe-fish oil 1,000 mg 2 cap PO DAILY 02/24/25 03/07/25 History (120 mg-180 mg) capsule (Fish Oil) Patient hx anesthesia problems: none Family hx anesthesia problems: none Results Review: All pre-operative results and documents have been reviewed as part of the pre-operative evaluation. [facility] Surgical History Surgical History (Updated 03/07/25 @ 06:47 by Saurabh Odell MD) History of nephrectomy donor Social History Social History Smoking status: Never smoker Alcohol intake: current Drinks per week: 6 Alcohol use details: BEER Living arrangements: with family Spiritual care concerns: No Anes - Eval Final PreProcedure Day of Procedure 03/07/25 06:47 Patient weight: normal Heart: regular rate and rhythm Lungs: clear to auscultation Airway: Mallampati scale class II Neurological: alert and oriented Last oral intake: >/= 8 hours ASA classification: III Emergent: no Anesthetic plan: proceed Anesthesia type and monitoring: general ETT and standard monitoring Results Review: All pre-operative results and documents have been reviewed as part of the pre-operative evaluation. Informed Consent: The patient's anesthetic plan and its attendant risks and benefits were discussed with the patient/family/POA. Questions were solicited and answers provided to the satisfaction of the patient/family/POA.
--- NOTE | 2025-03-07 07:14 | WPDHPUPDATE1 ---
History and Physical Update Update Date/Time: 03/07/25 07:14 History and Physical has been reviewed, including an updated exam of the patient. There are NO changes in the patient's condition. Risks, benefits, and alternatives have been discussed and questions answered. Patient agrees to proceed with procedure.
[2025-03-07] MEDS: ceFAZolin 2 GM in SODIUM CHLORIDE 0.9% IV 50 ML 100 ML IVPB (07:29)
[2025-03-07] MEDS: BUPIVACAINE/EPINEPHRINE 0.5% 50 ML VIAL 30 ML INFILTRATE (08:00)
--- NOTE | 2025-03-07 08:45 | W.PM.PROC2 ---
Procedure Note - Detailed Date of Procedure 03/07/25 Pre-op Diagnosis Cystocele, rectocele, vaginal vault prolapse, stress incontinence Post-op Diagnosis Same Procedure Performed Sacral spinous fixation, cystocele repair, rectocele repair, mid urethral sling, cystoscopy Surgeon Rei Dumont MD [employer] [facility] Anesthesia General Indications This is a woman with pelvic organ prolapse as well as stress incontinence. She presents for a pelvic organ prolapse repair. She understands risks of bleeding, infection, damage surrounding organs, damage to the urinary tract, damage to the bowel, recurrent prolapse, dyspareunia, obstructive voiding requiring secondary procedure, hip and leg pain, vascular nerve injury, Dyspareunia. She agrees to proceed Findings Significantly worse pelvic organ prolapse that my last exam. 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 Description of Procedure She was correctly identified. Informed consent obtained. From the operating room. She was given general anesthesia. She was placed in dorsal lithotomy position. She was prepped draped sterile fashion. She was given appropriate perioperative antibiotics. A time-out was performed. Examination reveals significantly advanced prolapse. More than that was evident on her last office exam. Because of this significantly larger cystocele and vaginal vault prolapse I elected to perform a sacral spinous ligament fixation. The [place] retractor was placed. [place] catheter was placed. I grasped the anterior vaginal wall which extended far beyond the introitus. I infiltrated subcutaneous tissues with local mixed with epinephrine. I made a midline vaginal incision. I dissected out laterally 1st on the patient's right and then on the patient's left. I then dissected out towards the apex. I took great care not to injure the vagina or the bladder. We I entered the retroperitoneal space on the patient's right. I cleaned off the fatty tissues and swept the rectum medially. This allowed me to palpate the sacral spinous ligament cleanly. I used the Capio device and a Ethibond suture. I placed the dart and in the sacral spinous ligament 2 fingerbreadths medial to the ischial spine. I then placed the other and to the vaginal apex. I then turned my attention to the cystocele repair. I used interrupted 0 Vicryl sutures to plicate the cystocele. This resulted in excellent cystocele reduction. I trimmed excess vaginal mucosa. I then tied down my sacral spinous ligament suture. This elevated the vaginal apex towards the ischial spine reducing the vaginal vault prolapse and further reducing the cystocele and rectocele. I closed the anterior vaginal wall with a running 2-0 Vicryl suture. Examination revealed a small distal rectocele. I infiltrated this area with local mixed with epinephrine. I made a midline vaginal incision on the posterior vaginal wall. I dissected the mucosal tissue out laterally. I took great care not to injure rectum or vaginal wall. I then performed a plication type rectocele repair of her small distal rectocele. I used a 0 Vicryl suture to do this plication. I took great care to not injure underlying rectum. I then trimmed the redundant vaginal mucosa. I then closed this posterior vaginal incision with a running 2 Vicryl suture I then turned my attention towards the urethral sling. I anesthetized the anterior vaginal wall over the mid urethra. I made a 1 cm incision. I dissected out laterally taking great care not injur the urethra or the vaginal wall. I anesthetized the inner thigh incisions and made those incisions. Passed helical trocars 1st on the patient's right then on the patient's left. I did this from the thigh incision towards the vaginal incision. Sling was connected to the trocars and brought out through the thigh incision. I tensioned the sling appropriately. I cut and removed the plastic sheaths. I closed that incision with a running 2-0 Vicryl suture. On cystoscopy she had no tumors, stones, surgical artifact, foreign body. No foreign body in the bladder or urethra. Right ureter was seen to excrete clear yellow urine. Left kidney is surgically absent. I cut the excess sling material. Closed incisions with glue. She was awakened transferred to PACU in stable condition Estimated Blood Loss 20 Drains No Packing No Pathology None sent Complications No immediate complications Condition Stable Disposition PACU
== END 2025-03-07 11:23 | disposition home or self-care (01) ==
PROVIDERS: Visit Provider Urology
PROC: (CPT 57240; principal; 2025-03-07 07:30)
PROC: (CPT 57282; 2025-03-07 07:30)
DX: N81.11 Cystocele, midline (principal); N81.6 Rectocele; N39.3 Stress incontinence (female) (male)
CPT/HCPCS: 57282; 57260; 57288; J0690; A9270; C1771; J1100; J2003; J2250; J2405; J2704; J3010; J7030; J7120